=== PATIENT | female | born 1985 | race African-American/Black ===

== ENCOUNTER 2018-01-03 04:24 | Inpatient (IN) | payer MEDICAID ==
[2018-01-03] VITALS (16 sets, daily range): BP systolic 110–183; BP diastolic 72–116
[~2018-01-03] VITALS: Ht 149.9 cm; Wt 56.7 kg
[2018-01-03] MEDS: LACTATED RINGER'S 1,000 ML IV SCH ×3 (04:31→21:56)
[2018-01-03] MEDS ORDERED: LACT. RINGERS/OXYTOCIN 20UNITS 1,000 ML IV SCH ×2 (04:31→10:04)
[2018-01-03] MEDS ORDERED: LACTATED RINGER'S 1,000 ML IV SCH (04:31)
[2018-01-03] MEDS ORDERED: DERMOPLAST 60ML BOTTLE TOP PRN (04:45)
[2018-01-03] MEDS ORDERED: PHISODERM TOP SOLN 240ML BTL TOP PRN (04:45)
[2018-01-03] MEDS ORDERED: WITCH HAZEL-GLYCERIN PAD TOP PRN (04:45)
[2018-01-03] MEDS ORDERED: CARBOPROST TROMETHAMINE 250 MCG/1ML VIAL IM PRN (04:45)
[2018-01-03] MEDS ORDERED: LIDOCAINE 2% (LOCAL ANESTH.) PF 5ml SDV ID ONE (04:45)
[2018-01-03] MEDS ORDERED: PENICILLIN G POT 5MIL/D5 50ML 50 ML IV ONE (04:45)
[2018-01-03] MEDS ORDERED: METHYLERGONOVINE MALEATE 0.2 MG/ML AMP IM PRN (04:45)
[2018-01-03 05:41] LABS: Hematocrit 29.4 % (36.0-46.0); Hemoglobin 9.8 g/dL (12.2-16.2); Red Blood Cells 3.85 10^6/uL (4.0-5.20)
[2018-01-03 05:42] LABS: Mean Corpuscular Hemoglobin 25.4 pg (28.0-32.0); Mean Corpuscular Hgb Conc. 33.3 g/dL (32.0-36.0); Mean Corpuscular Volume 76.5 fL (80.0-100.0); Platelet Count (auto) 172 10^3/uL (140-450); White Blood Cell 9.1 10^3/uL (4.4-10.8)
[2018-01-03 05:46] LABS: Red Cell Distribution Width 22.3 % (11.8-14.3)
[2018-01-03 05:48] LABS: Basophils % (manual) 0 (0.0-2.0); Blast Cells 0; Metamyelocytes % 0; Myelocytes % 0; Promyelocytes % 0; Reactive Lymphocytes 0
[2018-01-03 05:52] LABS: INR 0.93 (0.9-1.15); Partial Thromboplastin Time 29.2 sec (23.78-33.04)
[2018-01-03 05:59] LABS: BUN/Creatinine Ratio 5.6; Bilirubin, Total 0.7 mg/dL (0.2-1.0); Calcium 7.9 mg/dL (8.5-10.1); Potassium 3.3 mmol/L (3.5-5.1)
[2018-01-03 06:16] LABS: Urine Bacteria FEW /hpf (None Seen); Urine Blood 2+ /uL (Negative); Urine Specific Gravity 1.003 (1.001-1.035); Urine WBC 4 /hpf (0 - 5)
[2018-01-03 06:28] LABS: Alcohol, Urine < 3.0 mg/dL (0-5); Amphetamine Screen, Urine NEGATIVE (NEGATIVE); Barbiturate Scree,Urine NEGATIVE (NEGATIVE); Benzodiazephine Screen, Urine NEGATIVE (NEGATIVE); Cannabinoid Screen, Urine NEGATIVE (NEGATIVE); Cocaine Screen, Urine NEGATIVE (NEGATIVE); Opiate Scree,Urine NEGATIVE (NEGATIVE); Phencyclidine Screen, Urine NEGATIVE (NEGATIVE)
[2018-01-03] MEDS ORDERED: DIPHENOXYLATE W/ATROPINE 2.5 MG TAB PO PRN (06:45)
[2018-01-03] MEDS ORDERED: ONDANSETRON HCL 4 MG/2 ML VIAL IV PRN ×2 (06:45→10:30)
[2018-01-03 06:58] LABS: Band Neutrophils % (manual) 2; Eosinophils % (manual) 2 (0-7); Lymphocytes % (manual) 14 (10.0-50.0); Monocytes % (manual) 5 (0-12)
[2018-01-03] MEDS ORDERED: fentaNYL CITRATE 100 MCG/2 ML VL IV ONE (08:30)
[2018-01-03] MEDS ORDERED: fentaNYL W ROPIVACAINE 150 ML EPI SCH (08:30)
[2018-01-03] MEDS ORDERED: NALOXONE HCL 0.4 MG/ML VIAL IV ONE (08:30)
[2018-01-03] MEDS ORDERED: ePHEDrine SULFATE 50 MG/ML AMP IV ONE (08:30)
[2018-01-03] MEDS ORDERED: LIDOCAINE HCL 2 %PF INJ 10ML AMP IJ ONE (08:30)
[2018-01-03] MEDS ORDERED: PENICILLIN G POTASSIUM 2,500,000 UNITS in D5W 5% 50 ML IV SCH (08:45)
[2018-01-03] MEDS ORDERED: TETRACAINE 1% INJ 2 ML VIAL IJ ONE (08:58)
[2018-01-03] MEDS ORDERED: MORPHINE SULF(PF) 0.5MG/ML 10ML VIAL ONE (09:03)
[2018-01-03] MEDS ORDERED: fentaNYL CITRATE 100 MCG/2 ML VL ONE (09:04)
[2018-01-03] MEDS ORDERED: MIDAZOLAM HCL 1MG/1ML-2 ML VIAL ONE (09:04)
[2018-01-03] MEDS ORDERED: PHENYLEPHRINE HCL 10 MG/ML VL IV ONE (09:05)
[2018-01-03] MEDS ORDERED: OXYTOCIN 10 UNIT/ML 10ML VIAL ONE (09:31)
[2018-01-03] MEDS ORDERED: ceFAZolin 1GM VL ONE (09:31)
[2018-01-03] MEDS ORDERED: MORPHINE SULFATE 4 MG/ML SYR/VIAL IV PRN (10:15)
[2018-01-03] MEDS ORDERED: diphenhdrAMINE HCL 50 MG/1 ML VL IV PRN (10:30)
[2018-01-03] MEDS ORDERED: NALOXONE HCL 0.4 MG/ML VIAL IV PRN (10:30)
[2018-01-03] MEDS ORDERED: NALBUPHINE HCL 10 MG/1ml INJECTION SUBCUT ONE (10:30)
[2018-01-03] MEDS ORDERED: LABETALOL HCL 5 MG/ML 4ML SYRINGE IV PRN (10:30)
[2018-01-03] MEDS ORDERED: DEXAMETHASONE SOD PHOS 10MG/1ML VIAL INJ IV PRN (10:30)
[2018-01-03] MEDS ORDERED: KETOROLAC TROMETH 30 MG/ML 1ML VIAL IV PRN (10:30)
[2018-01-03] MEDS ORDERED: HYDROmorphone HCL 2 MG/ML VL IV PRN (10:30)
[2018-01-03] MEDS ORDERED: hydrOXYzine HCL 25 MG/ML VL IM ONE ×2 (11:45→11:47)
[2018-01-03] MEDS ORDERED: hydrALAZINE HCL 20 MG/ML VL IV ONE (11:45)
[2018-01-03] MEDS ORDERED: hydrALAZINE HCL 20 MG/ML VL ONE (11:47)
[2018-01-03] MEDS ORDERED: diphenhdrAMINE HCL 25 MG CAP PO ONE ×2 (13:10→13:15)
[2018-01-03] MEDS: ceFAZolin 1GM/50ML 50 ML IV SCH (17:27)
[2018-01-03] MEDS ORDERED: diphenhdrAMINE HCL 25 MG CAP PO PRN (19:15)
[2018-01-03 19:54] LABS: Basophils # (auto) 0.1 uL; Basophils % (auto) 0.4 % (0.0-2.0); Eosinophils # (auto) 0 uL; Hematocrit 30.5 % (36.0-46.0); Hemoglobin 9.8 g/dL (12.2-16.2); Lymphocytes # (auto) 1.6 uL; Lymphocytes % (auto) 6.4 % (10.0-50.0); Mean Corpuscular Hemoglobin 25.7 pg (28.0-32.0); Mean Corpuscular Hgb Conc. 32.3 g/dL (32.0-36.0); Mean Corpuscular Volume 79.7 fL (80.0-100.0); Monocytes # (auto) 0.9 uL; Monocytes % (auto) 3.9 % (0.0-12.0); Neutrophils % (auto) 89.3 % (37.0-80.0); Platelet Count (auto) 149 10^3/uL (140-450); Red Blood Cells 3.82 10^6/uL (4.0-5.20); White Blood Cell 24.6 10^3/uL (4.4-10.8)
[2018-01-03 19:56] LABS: Red Cell Distribution Width 20.7 % (11.8-14.3)
[2018-01-03] MEDS ORDERED: hydrOXYzine HCL 25 MG/ML VL IM PRN (20:15)
[2018-01-03] MEDS: KETOROLAC TROMETH 30 MG/ML 1ML VIAL IV PRN (20:46)
[2018-01-03 21:23] LABS: Albumin 1.7 g/dL (3.4-5.0); BUN/Creatinine Ratio 6.7; Bilirubin, Total 1.1 mg/dL (0.2-1.0); Calcium 7.4 mg/dL (8.5-10.1); Potassium 3.9 mmol/L (3.5-5.1); Total Protein 5.2 g/dL (6.4-8.2); Uric Acid 7.5 mg/dL (2.6-6.0)
[2018-01-03] MEDS ORDERED: MAGNESIUM SULFATE 100 ML IV ONE ×2 (22:02→22:15)
[2018-01-03] MEDS ORDERED: MAGNESIUM SULFATE 40MG/ML 1,000 ML IV ONE (22:02)
[2018-01-03] MEDS ORDERED: MAGNESIUM SULFATE 40MG/ML 1,000 ML IV SCH (22:30)
[2018-01-04] VITALS (13 sets, daily range): BP systolic 108–137; BP diastolic 63–134
[2018-01-04] MEDS: ceFAZolin 1GM/50ML 50 ML IV SCH (02:00)
[2018-01-04] MEDS: KETOROLAC TROMETH 30 MG/ML 1ML VIAL IV PRN (04:55)
[2018-01-04 05:06] LABS: RPR Non Reactive (Non Reactive)
[2018-01-04 06:48] LABS: Eosinophils # (auto) 0 uL; Hemoglobin 10.2 g/dL (12.2-16.2); Mean Corpuscular Hemoglobin 26.4 pg (28.0-32.0)
[2018-01-04 06:51] LABS: Basophils # (auto) 0.1 uL; Basophils % (auto) 0.3 % (0.0-2.0); Hematocrit 30.8 % (36.0-46.0); Lymphocytes # (auto) 1.5 uL; Lymphocytes % (auto) 6.3 % (10.0-50.0); Mean Corpuscular Hgb Conc. 33.1 g/dL (32.0-36.0); Mean Corpuscular Volume 79.8 fL (80.0-100.0); Monocytes # (auto) 0.8 uL; Monocytes % (auto) 3.4 % (0.0-12.0); Neutrophils # (auto) 21.6 uL; Nucleated Red Blood Cells % 0.1 %; Platelet Count (auto) 171 10^3/uL (140-450); Red Blood Cells 3.86 10^6/uL (4.0-5.20)
[2018-01-04 07:12] LABS: Red Cell Distribution Width 20.4 % (11.8-14.3)
[2018-01-04] MEDS ORDERED: hydrOXYzine HCL 25 MG/ML VL IM PRN (08:30)
[2018-01-04] MEDS: LACTATED RINGER'S 1,000 ML IV SCH ×3 (12:00→20:31)
[2018-01-04] MEDS: PIPERACILLIN-TAZOB 3.375GM 100 ML IV SCH ×2 (12:29→18:23)
[2018-01-04] MEDS ORDERED: BISACODYL 10 MG RECT SUPP PR PRN (12:30)
[2018-01-04 14:06] LABS: Rubella Antibodies, IgG 2.13 index (Immune >0.99)
[2018-01-04] MEDS: HYDROcodone-ACET 5/325MG TAB PO PRN ×2 (14:38→22:38)
[2018-01-04] MEDS: IBUPROFEN 800 MG TAB PO PRN (17:22)
[2018-01-04] MEDS: SIMETHICONE 80 MG CHEWABLE TABLET PO SCH ×2 (18:25→21:43)
[2018-01-04] MEDS ORDERED: NORPTMEDS CO (23:04)
[2018-01-05] MEDS: PIPERACILLIN-TAZOB 3.375GM 100 ML IV SCH ×5 (00:10→23:19)
[2018-01-05] MEDS: IBUPROFEN 800 MG TAB PO PRN ×3 (02:21→23:17)
[2018-01-05 03:02] VITALS: BP 128/66
[2018-01-05] MEDS: LACTATED RINGER'S 1,000 ML IV SCH ×2 (04:31→20:31)
[2018-01-05] MEDS: SIMETHICONE 80 MG CHEWABLE TABLET PO SCH ×4 (05:43→23:16)
[2018-01-05] MEDS: HYDROcodone-ACET 5/325MG TAB PO PRN ×3 (07:08→19:57)
[2018-01-05 07:24] LABS: Calcium 7.2 mg/dL (8.5-10.1); Potassium 3.6 mmol/L (3.5-5.1)
[2018-01-05 07:25] LABS: BUN/Creatinine Ratio 4.7
[2018-01-05 07:27] VITALS: BP 124/85
[2018-01-05 07:38] LABS: Basophils # (auto) 0 uL; Basophils % (auto) 0.2 % (0.0-2.0); Hemoglobin 9.2 g/dL (12.2-16.2); Nucleated Red Blood Cells % 0.5 %
[2018-01-05 07:40] LABS: Eosinophils # (auto) 0.1 uL; Eosinophils % (auto) 0.3 % (0.0-7.0); Hematocrit 27.7 % (36.0-46.0); Lymphocytes % (auto) 11.1 % (10.0-50.0); Mean Corpuscular Hemoglobin 26.5 pg (28.0-32.0); Mean Corpuscular Hgb Conc. 33.2 g/dL (32.0-36.0); Mean Corpuscular Volume 79.7 fL (80.0-100.0); Monocytes # (auto) 0.9 uL; Monocytes % (auto) 5.2 % (0.0-12.0); Neutrophils # (auto) 14.9 uL; Neutrophils % (auto) 83.2 % (37.0-80.0); Platelet Count (auto) 225 10^3/uL (140-450); Red Blood Cells 3.47 10^6/uL (4.0-5.20)
[2018-01-05 07:42] LABS: Red Cell Distribution Width 21.1 % (11.8-14.3)
[2018-01-05 11:00] VITALS: BP 126/82
[2018-01-05] MEDS: DOCUSATE CALCIUM 240 MG CAP PO SCH (11:47)
[2018-01-05 15:00] VITALS: BP 132/71
[2018-01-05 18:45] VITALS: BP 135/91
[2018-01-05 23:00] VITALS: BP 125/88
[2018-01-06 03:00] VITALS: BP 123/74
[2018-01-06] MEDS: LACTATED RINGER'S 1,000 ML IV SCH (04:31)
[2018-01-06] MEDS: SIMETHICONE 80 MG CHEWABLE TABLET PO SCH ×2 (05:36→13:00)
[2018-01-06] MEDS: HYDROcodone-ACET 5/325MG TAB PO PRN ×2 (05:37→11:58)
[2018-01-06] MEDS: PIPERACILLIN-TAZOB 3.375GM 100 ML IV SCH ×2 (05:37→12:00)
[2018-01-06 07:20] VITALS: BP 148/85
[2018-01-06] MEDS: IBUPROFEN 800 MG TAB PO PRN (09:07)
[2018-01-06 11:30] VITALS: BP 132/94
[2018-01-06] MEDS: DOCUSATE CALCIUM 240 MG CAP PO SCH (11:44)
[2018-01-06 12:45] VITALS: BP 140/93
== END 2018-01-06 15:25 | disposition home or self-care (01) | DRG 540 ==
LOC: LDRP 04:24
PROVIDERS: ADMIT Obstetrics & Gynecology; ATTEND Obstetrics & Gynecology
PROC: 30233N1 Transfusion of Nonautologous Red Blood Cells into Peripheral Vein, Percutaneous Approach (ICD-10-PCS; 2018-01-03)
PROC: 10D00Z1 Extraction of Products of Conception, Low, Open Approach (ICD-10-PCS; principal; 2018-01-03 09:15)
DX: O76 Abnormality in fetal heart rate and rhythm complicating labor and delivery (principal); O64.0XX0 Obstructed labor due to incomplete rotation of fetal head, not applicable or unspecified; D64.9 Anemia, unspecified; O09.33 Supervision of pregnancy with insufficient antenatal care, third trimester; O69.81X0 Labor and delivery complicated by cord around neck, without compression, not applicable or unspecified; Z37.0 Single live birth; Z3A.39 39 weeks gestation of pregnancy; Z88.6 Allergy status to analgesic agent; O99.02 Anemia complicating childbirth
CPT/HCPCS: 36415; 36430; 59025; 76805; 80048; 80053; 80307; 81001; 83735; 84550; 85007; 85025; 85027; 85610; 85730; 86592; 86703; 86762; 86850; 86900; 86901; 86920; 86922; 87340; 94762; 96361; 96365; 96366; 96372; 96375; J0690; J1885; J2250; J2540; J2543; J2590; J7060